=== PATIENT | male | born 1995 | race Asian ===

== ENCOUNTER 2022-08-19 08:39 | Emergency (ER) | payer MEDICAID ==
[~2022-08-19] VITALS: Ht 167.6 cm; Wt 65.8 kg
[2022-08-19 08:48] VITALS: BP 123/68
--- NOTE | 2022-08-19 08:49 | NUR ---
C/O SPRAINED LEFT ANKLE DUE TO BASKETBALL
--- NOTE | 2022-08-19 08:50 | NUR ---
DR. CABALLERO AT BEDSIDE FOR EVAL
--- NOTE | 2022-08-19 08:55 | NUR ---
WINEMAKER AT BEDSIDE
--- NOTE | 2022-08-19 09:35 | NUR ---
TECH AT BEDSIDE FOR KRISTIE WRAP APPLICATION AND CRUTCH TRAINING.
--- NOTE | 2022-08-19 09:42 | NUR ---
Patient discharged to home in stable condition. Written and verbal after care instructions given. Patient verbalizes understanding of instruction.
== END 2022-08-19 09:43 | disposition home or self-care (01) ==
LOC: ER 08:43
DX: S93.402A Sprain of unspecified ligament of left ankle, initial encounter (principal); X58.XXXA Exposure to other specified factors, initial encounter; Y93.67 Activity, basketball; Y92.89 Other specified places as the place of occurrence of the external cause; Y99.8 Other external cause status
CPT/HCPCS: 73610-TC